=== PATIENT | female | born 1975 | race Caucasian/White ===

== ENCOUNTER 2017-03-25 12:54 | Emergency (ER) | payer OTHER ==
[2017-03-25] MEDS ORDERED: METHYLPREDNISOLONE INJ 125 MG/2 ML SDV IM ONE (13:18)
--- NOTE | 2017-03-25 13:24 | ER Document Report ---
HPI - HPI Pain Level: 4 Notes: Patient is a 41-year-old female presents the ED complaining of a sore throat 3 days with occasional nasal congestion. Patient states that she did feel something solid and sharp in her left tonsil but she was trying to pick at. Patient states that after she picked at it she did note some bleeding coming out. She has not been able to see that objects since. Patient states that she is still able to swallow without any difficulties. She has not noticed any tightening in her throat causing any respiratory distress. She is eating and drinking without any difficulties. She has been using some [id number] meds with minimal relief. Patient states that she has recurrent strep infections and her last infection was 2 months ago. The pain does not radiate otherwise. She has not noticed any obvious swelling or discharge or exudates in her mouth. Patient is allergic to penicillins and sulfa which causes swelling. She has past medical history significant for hypertension & diabetes. Denies any headache, fever,facial swelling, neck pain/stiffness, chest pain, palpitations, syncope, cough, shortness of breath, wheeze, dyspnea, abdominal pain, nausea/vomiting/diarrhea, dysuria, hematuria, or rash. - ROS Notes: REVIEW OF SYSTEMS: CONSTITUTIONAL : Denies fever, chills, or sweats. Denies recent illness. EENT: see hpi CARDIOVASCULAR: Denies chest pain. Denies palpitations or racing or irregular heart beat. Denies ankle edema. RESPIRATORY: Denies cough, cold, or chest congestion. Denies shortness of breath, difficulty breathing, or wheezing. GASTROINTESTINAL: Denies abdominal pain or distention. Denies nausea, vomiting , or diarrhea. Denies blood in vomitus, stools, or per rectum. Denies black, tarry stools. Denies constipation. GENITOURINARY: Denies difficulty urinating, painful urination, burning, frequency, blood in urine, or discharge. MUSCULOSKELETAL: Denies back or neck pain or stiffness. Denies joint pain or swelling. SKIN: Denies rash, lesions or sores. NEUROLOGICAL: Denies confusion or altered mental status. Denies passing out or loss of consciousness. Denies dizziness or lightheadedness. Denies headache. Denies weakness or paralysis or loss of use of either side. Denies problems with gait or speech. Denies sensory loss, numbness, or tingling. ALL OTHER SYSTEMS REVIEWED AND NEGATIVE. Dictation was performed using [employer] voice recognition software - REPRODUCTIVE Reproductive: DENIES: : - DERM Skin Color: Normal Past Medical History - Social History Smoking Status: Unknown if Ever Smoked Family History: Reviewed & Not Pertinent - Past Medical History Cardiac Medical History: Reports: Hx Hypertension Endocrine Medical History: Reports: Hx Diabetes Mellitus Type 2 Renal/ Medical History: Denies: Hx Peritoneal Dialysis Psychiatric Medical History: Reports: Hx Depression, Hx Post Traumatic Stress Disorder Past Surgical History: Reports: Hx Cholecystectomy - Immunizations Hx Diphtheria, Pertussis, Tetanus Vaccination: Yes Vertical Provider Document - CONSTITUTIONAL Agree With Documented VS: Yes Notes: PHYSICAL EXAMINATION: GENERAL: Well-appearing, well-nourished and in no acute distress. HEAD: Atraumatic, normocephalic. EYES: Pupils equal round and reactive to light, extraocular movements intact, sclera anicteric, conjunctiva are normal. ENT: EAC clear b/l. TM's intact b/l without erythema, fluid, or perforation. Nares patent and without discharge. oropharynx mild erythema without exudates. <1+ tonsilar hypertrophy, + mild erythema. [place] midline. No palatine shift. No tongue protrusion. Moist mucous membranes. No sinus tenderness. No facial swelling. NECK: Normal range of motion, supple without lymphadenopathy. Non-tender. No rigidity/meningismus. LUNGS: Breath sounds clear to auscultation bilaterally and equal. No wheezes rales or rhonchi. HEART: Regular rate and rhythm without murmurs, rubs, gallops. ABDOMEN: Soft, nontender, nondistended abdomen. No guarding, no rebound. No masses appreciated. Normal bowel sounds present. No CVA tenderness bilaterally. No hepatosplenomegaly. NEUROLOGICAL: Normal speech, normal gait. Normal sensory, motor exams PSYCH: Normal mood, normal affect. SKIN: Warm, Dry, normal turgor, no rashes or lesions noted. - INFECTION CONTROL TRAVEL OUTSIDE OF THE [place] IN LAST 30 DAYS: No - RESPIRATORY O2 Sat by Pulse Oximetry: 97 Course - Re-evaluation Re-evalutation: 03/25/17 13:45 Patient is an afebrile, well-hydrated, 41-year-old female who presents the ED with acute pharyngitis. Vitals are stable. PE otherwise unremarkable. Rapid strep negative. Low suspicion for any pharyngeal/peritonsillar abscess, Ludwigs , meningitis, sepsis, respiratory compromise, or other systemic emergent condition at this time. Patient understands the condition can change from initial presentation she needs longer symptoms closely and seek medical attention if any acute changes. Solu-Medrol 125 mg given IM today. Recommend conservative measures for symptoms. Recheck with her PCM in 2-3 days. Return to the ED with any worsening/concerning symptoms otherwise as reviewed in discharge. Patient is in agreement. - Vital Signs Vital signs: Temp Pulse Resp BP Pulse Ox 98.2 F 106 H 18 112/67 97 03/25/17 12:58 03/25/17 12:58 03/25/17 12:58 03/25/17 12:58 03/25/17 12:58 Discharge - Discharge Clinical Impression: Acute pharyngitis Qualifiers: Pharyngitis/tonsillitis etiology: unspecified etiology Qualified Code(s): J02.9 - Acute pharyngitis, unspecified Condition: Stable Disposition: HOME, SELF-CARE Instructions: Sore Throat ([facility]) Additional Instructions: Maintain adequate fluid intake Take meds as directed Salt water gargles, throat sprays, mouthwash rinse, peroxide gargles tylenol/ibuprofen as needed New toothbrush tomorrow evening over the counter cold medication as needed for symptoms F/u: with your PCM in 2-3 days for a recheck Consider consult with ENT for ongoing/worsening symptoms Return to the ED with any fever, worsening pain, chest pain, neck pain/stiffness , shortness of breath, cough, trouble swallowing/breathing, abdominal pain, n/v/ d, or worsening/concerning symptoms otherwise. Referrals: ENT [Provider Group] - Follow up as needed FAY PEREZ MD [EVIE [facility]ERT[facility]] - Follow up as needed [facility] [Provider Group] - Follow up in 3-5 days
[2017-03-25 14:54] VITALS: BP 128/74
== END 2017-03-25 14:43 | disposition home or self-care (01) ==
LOC: ER 12:54
DX: J02.9 Acute pharyngitis, unspecified (principal); I10 Essential (primary) hypertension; E11.9 Type 2 diabetes mellitus without complications; Z88.2 Allergy status to sulfonamides; Z88.0 Allergy status to penicillin
CPT/HCPCS: 99283; 96372; 87070; 87880; J2930

== ENCOUNTER 2017-05-05 12:57 | Emergency (ER) | payer OTHER ==
--- NOTE | 2017-05-05 13:44 | ER Document Report ---
HPI - HPI Patient complains to provider of: Abdominal abscess Onset: Last week Onset/Duration: Better Quality of pain: Achy Pain Level: 3 Context: Patient complains of abscess to left side of abdomen for the past week. Patient states that area drained purulent drainage last night. Patient denies any fever. Associated Symptoms: Other - Abscess to abdomen Exacerbated by: Denies Relieved by: Denies Similar symptoms previously: No Recently seen / treated by doctor: No - ROS ROS below otherwise negative: Yes Systems Reviewed and Negative: Yes All other systems reviewed and negative - CONSTITUTIONAL Constitutional: DENIES: Fever, Chills - REPRODUCTIVE LMP: 05/17 Reproductive: DENIES: : - DERM Skin Color: Normal Notes: Wound that drained purulent drainage last night abdomen Past Medical History - General Information source: Patient - Social History Smoking Status: Never Smoker Frequency of alcohol use: None Drug Abuse: None Occupation: None Lives with: Family Family History: Reviewed & Not Pertinent Patient has suicidal ideation: No Patient has homicidal ideation: No - Past Medical History Cardiac Medical History: Reports: Hx Hypertension Endocrine Medical History: Reports: Hx Diabetes Mellitus Type 2 Renal/ Medical History: Denies: Hx Peritoneal Dialysis Psychiatric Medical History: Reports: Hx Depression, Hx Post Traumatic Stress Disorder Past Surgical History: Reports: Hx Cholecystectomy, Hx Tubal Ligation - Immunizations Hx Diphtheria, Pertussis, Tetanus Vaccination: Yes Vertical Provider Document - CONSTITUTIONAL Agree With Documented VS: Yes Exam Limitations: No Limitations General Appearance: WD/WN, No Apparent Distress - INFECTION CONTROL TRAVEL OUTSIDE OF THE [place] IN LAST 30 DAYS: No - HEENT HEENT: Atraumatic, Normocephalic - NECK Neck: Normal Inspection - RESPIRATORY Respiratory: No Respiratory Distress O2 Sat by Pulse Oximetry: 99 - GI/ABDOMEN Gastrointestinal: Abdomen Soft, Abdomen Tender - Mild tenderness involving 1 cm crusted lesion to left side of abdomen. No palpable induration or drainable fluid collection. No concern for cellulitis. - MUSCULOSKELETAL/EXTREMETIES Musculoskeletal/Extremeties: BELL REA - NEURO Level of Consciousness: Awake, Alert, Appropriate Motor/Sensory: No Motor Deficit - DERM Integumentary: Warm, Dry, No Rash, Abscess - Resolving abscess to left side of abdomen Course - Vital Signs Vital signs: Temp Pulse Resp BP Pulse Ox 98.5 F 67 16 111/66 99 05/05/17 13:04 05/05/17 13:04 05/05/17 13:04 05/05/17 13:04 05/05/17 13:04 Discharge - Discharge Clinical Impression: resolving abscess Condition: Stable Disposition: HOME, SELF-CARE Instructions: Abscess ([facility]), Bactroban Ointment ([facility]), Warm Packs ([facility]) Additional Instructions: Return immediately for any new or worsening symptoms Followup with your primary care provider, call tomorrow to make a followup appointment Prescriptions: Mupirocin [Bactroban 2% Ointment 22 gm] 1 applic TP TID #22 gm Referrals: [facility] [Provider Group] - Follow up tomorrow
[2017-05-05 14:03] VITALS: BP 108/72
== END 2017-05-05 13:58 | disposition home or self-care (01) ==
LOC: ER 12:57
DX: L02.211 Cutaneous abscess of abdominal wall (principal); I10 Essential (primary) hypertension; E11.9 Type 2 diabetes mellitus without complications; Z90.49 Acquired absence of other specified parts of digestive tract; Z98.51 Tubal ligation status
CPT/HCPCS: 99282